=== PATIENT | male | born 1990 | race African-American/Black ===

== ENCOUNTER → 2019-06-01 | Outpatient (CLI) | payer OTHER | LOC: MHCPAIN 13:09 | DX: G89.29 Other chronic pain (principal); M47.817 Spondylosis without myelopathy or radiculopathy, lumbosacral region; M53.3 Sacrococcygeal disorders, not elsewhere classified | CPT/HCPCS: G0463 ==

== ENCOUNTER → 2019-06-14 | Outpatient (CLI) | payer OTHER | LOC: MHCPAIN 10:37 | DX: M53.3 Sacrococcygeal disorders, not elsewhere classified (principal); M54.5 Low back pain | CPT/HCPCS: G0260; J1040; Q9967 ==

== ENCOUNTER → 2019-07-20 | Outpatient (CLI) | payer OTHER | LOC: MHCPAIN 08:47 | DX: M53.3 Sacrococcygeal disorders, not elsewhere classified (principal) | CPT/HCPCS: G0463 ==